=== PATIENT | male | born 1970 | race Two or more races ===

== ENCOUNTER 2016-06-18 09:52 | Day surgery (SDC) | payer OTHER ==
[2016-06-12 14:00] VITALS: BMI 38.2
[~2016-06-18 09:52] MED LIST: DEXAMETHASONE SOD PHOSPHATE 10 MG/ML 1 ML VIAL IV ONE; HEPARIN SODIUM,PORCINE 5,000 UNIT/ML 1 ML VIAL SQ ONE; LACTATED RINGERS 1,000 ML IV SCH; MIDAZOLAM 2 MG/2 ML VIAL IV PRN; ONDANSETRON 4 MG/2 ML VIAL IVP ONE; SCOPOLAMINE 1.5MG/72HR PATCH TRANSDERM ONE; ceFAZolin 3 GM in SODIUM CHLORIDE 0.9% 100 ML IVPB ONE
[2016-06-18 10:13] VITALS: RESP 16
[2016-06-18] MEDS ORDERED: LIDOCAINE 1% 20 ML VIAL (10MG/ML) FOR IV START INTRADERMA ONE (10:16)
--- NOTE | 2016-06-18 11:18 | P.GSHP ---
History of Present Illness H&P Date: 06/18/16 Chief Complaint: Incarcerated umbilical hernia 's is a 45-year-old male who presents today for laparoscopic robotic-assisted repair of incarcerated we'll hernia. He is dull pain in his umbilicus. The patient was seen Alysia found have a small incarcerated umbilical hernia. - Constitutional Constitutional: Reports as per HPI Past Medical History Past Medical History: Asthma, GERD/Reflux Additional Past Medical History / Comment(s): OCC REFLUX D/T DIET. HEMORRHOID. DIARRHEA, FEELS TIRED, SLUGGISH. HAS UMB HERNIA, TO HAVE SURG 06/18/16. History of Any Multi-Drug Resistant Organisms: None Reported Past Surgical History: Orthopedic Surgery Additional Past Surgical History / Comment(s): REPAIR LT EYE INJURY TO CORNEA. RT KNEE SCOPE. EXC ABSCESS ON TAILBONE. Past Anesthesia/Blood Transfusion Reactions: Previous Problems w/ Anesthesia Additional Past Anesthesia/Blood Transfusion Reaction / Comment(s): WHEN AWAKENING GETS CONFUSED, PHYSICAL. Smoking Status: Current every day smoker Past Alcohol Use History: Rare Additional Past Alcohol Use History / Comment(s): SMOKED SINCE 1993, 1 PPD OR MORE. Past Drug Use History: None Reported - Past Family History Mother Family Medical History: No Reported History Medications and Allergies Home Medications Medication Instructions Recorded Confirmed Type Albuterol Inhaler [Ventolin Hfa 1 - 2 puff INHALATION Q6HR PRN 06/12/16 History Inhaler] Ibuprofen [Motrin] 800 mg PO Q8HR PRN 06/12/16 06/17/16 History Allergies Allergy/AdvReac Type Severity Reaction Status Date / Time No Known Allergies Allergy Verified 06/18/16 10:09 Surgical - Exam Vital Signs Temp Pulse Resp BP Pulse Ox 97.5 F L 81 16 132/82 97 06/18/16 10:11 06/18/16 10:11 06/18/16 10:11 06/18/16 10:11 06/18/16 10:11 - General well developed, no distress - Eyes PERRL - ENT normal pinna - Neck no masses - Respiratory normal expansion - Cardiovascular Rhythm: regular - Abdomen Abdomen: soft, non tender Assessment and Plan Plan: Incarcerated we'll hernia. We'll perform laparoscopic robotic-assisted repair.
[2016-06-18] MEDS ORDERED: SUCCINYLCHOLINE CHLORIDE VIAL 200 MG/10 ML VIAL IV ONE (11:33)
[2016-06-18] MEDS ORDERED: PROPOFOL 10 MG/ML 20 ML VIAL IV ONE (11:33)
[2016-06-18] MEDS ORDERED: LIDOCAINE 1% INJ 10MG/ML (20 ML MDV) ONE (11:33)
[2016-06-18] MEDS ORDERED: NEOSTIGMINE 1 MG/ML 10 ML VIAL ONE (11:33)
[2016-06-18] MEDS ORDERED: fentaNYL (PF) 50 MCG/ML 2 ML AMP ONE (11:33)
[2016-06-18] MEDS ORDERED: ROCURONIUM BROMIDE 10 MG/ML 10 ML VIAL IV ONE (11:33)
[2016-06-18] MEDS ORDERED: MIDAZOLAM 2 MG/2 ML VIAL ONE (11:33)
[2016-06-18] MEDS ORDERED: GLYCOPYRROLATE 0.2 MG/ML 2 ML VIAL ONE (11:33)
[2016-06-18] MEDS ORDERED: KETOROLAC 30 MG/ML 1 ML VIAL ONE (11:33)
[2016-06-18] MEDS ORDERED: BUPIVACAIN-EPI 0.25%-1:200,000 30 ML VIAL SQ ONE ×2 (11:57)
[2016-06-18] MEDS ORDERED: LACTATED RINGERS 1,000 ML IV ONE (12:24)
--- NOTE | 2016-06-18 12:26 | P.OP ---
Date of Procedure: 06/18/16 Preoperative Diagnosis: Incarcerated umbilical hernia Postoperative Diagnosis: Incarcerated umbilical hernia Procedure(s) Performed: Laparoscopic robotic-assisted repair of incarcerated umbilical hernia Anesthesia: SLICK Surgeon: Rod Carcamo Estimated Blood Loss (ml): 5 Pathology: none sent Condition: stable Disposition: PACU Description of Procedure: Patient's placed on the operating table in the supine position. He received general anesthesia. His abdomen was prepped and draped usual sterile fashion. The skin incision sites were anesthetized 1% local Xylocaine. Using a 5 mm blade was trocar under direct visitation the perineal cavity is entered in the left upper quadrant. The abdomen was insufflated and then after adequate insufflation the laparoscope was placed back the pleural cavity. Next a 8 mm robotic trochars placed in the left lower quadrant and then a 12 mm trochars placed in left lateral position and the original 5 mm trocar was exchanged for an 8 mm robotic trocar. Patient's placed in the left side up position. And then docked the robot. Incarcerated umbilical hernia was visualized. The hernia contained P Fat. This was dissected free from the fascial defect. The fascial defect was then closed using OV lock suture. Then a piece of ventral light ST mesh was placed over top apparent secured with 2 OV lock suture. The patient was undocked from the robot. The needles were retrieved. The 12 mm trocar site was closed with 0 Ethibond suture using a Sandeep Lyman suture passer and then the skin was closed interrupted 3-0 Monocryl suture. Dermabond was applied. Patient top she will well and was sent to recovery in stable condition.
[2016-06-18 12:56] VITALS: TEMP 97
[2016-06-18] MEDS: HYDROmorphone 1 MG/ML 1 ML SYRINGE IVP PRN ×4 (12:58→13:26)
[2016-06-18] MEDS ORDERED: HYDROcodone/APAP 7.5-325MG 1 EACH TAB PO ONE (14:19)
[2016-06-18 14:42] VITALS: BP 140/41; PULSE 79
== END 2016-06-18 15:30 | disposition home or self-care (01) ==
LOC: OR 09:52
PROVIDERS: ATTEND Surgery
DX: K42.0 Umbilical hernia with obstruction, without gangrene (principal); J45.909 Unspecified asthma, uncomplicated; K21.9 Gastro-esophageal reflux disease without esophagitis; F17.200 Nicotine dependence, unspecified, uncomplicated; Z79.899 Other long term (current) drug therapy
CPT/HCPCS: 49653; C1781; J2250; J0330; J1644; J1100; J2710; J0690; J2405; J2001; J3010; J1885; J1170; J2704

== ENCOUNTER 2016-06-20 02:12 | Inpatient (IN) | payer OTHER ==
[2016-06-20] MEDS ORDERED: SODIUM CHLORIDE 0.9% 1,000 ML IV STA (02:16)
[2016-06-20] MEDS ORDERED: ACETAMINOPHEN TAB 500 MG TAB PO STA (02:35)
[2016-06-20] MEDS ORDERED: MORPHINE SULFATE 4 MG/ML SYRINGE IVP STA (02:35)
[2016-06-20] MEDS ORDERED: IPRATROPIUM-ALBUTEROL 3 ML NEB INHALATION STA (02:35)
--- NOTE | 2016-06-20 02:35 | ED ---
General Adult HPI - General Stated complaint: SOB Time Seen by Provider: 06/20/16 02:14 Source: patient, RN notes reviewed, old records reviewed Mode of arrival: wheelchair Limitations: no limitations - History of Present Illness Initial comments: This is a 45-year-old male the ER for evaluation of postop symptoms. Chest pain shortness of breath abdominal pain. Patient recently had hernia repair incarcerated doctor was Dr Carcamo. Patient is not been feeling better since surgery. Still having continued pain and diffuse body pain and shortness of breath. Patient does notice fever and chills tonight - Related Data Home Medications Medication Instructions Recorded Confirmed Albuterol Inhaler [Ventolin Hfa 1 - 2 puff INHALATION Q6HR PRN 06/12/16 06/17/16 Inhaler] Ibuprofen [Motrin] 800 mg PO Q8HR PRN 06/12/16 06/17/16 Previous Rx's Medication Instructions Recorded HYDROcodone/APAP 7.5-325MG [[place] 1 each PO Q4H PRN #60 tab 06/18/16 7.5] Allergies Allergy/AdvReac Type Severity Reaction Status Date / Time No Known Allergies Allergy Verified 06/18/16 10:09 Review of Systems ROS Statement: Those systems with pertinent positive or pertinent negative responses have been documented in the HPI. ROS Other: All systems not noted in ROS Statement are negative. Past Medical History Past Medical History: Asthma, GERD/Reflux Additional Past Medical History / Comment(s): OCC REFLUX D/T DIET. HEMORRHOID. DIARRHEA, FEELS TIRED, SLUGGISH. HAS UMB HERNIA, TO HAVE SURG 06/18/16. History of Any Multi-Drug Resistant Organisms: None Reported Past Surgical History: Orthopedic Surgery Additional Past Surgical History / Comment(s): REPAIR LT EYE INJURY TO CORNEA. RT KNEE SCOPE. EXC ABSCESS ON TAILBONE. Past Anesthesia/Blood Transfusion Reactions: Previous Problems w/ Anesthesia Additional Past Anesthesia/Blood Transfusion Reaction / Comment(s): WHEN AWAKENING GETS CONFUSED, PHYSICAL. Past Psychological History: No Psychological Hx Reported Smoking Status: Current every day smoker Past Alcohol Use History: Rare Additional Past Alcohol Use History / Comment(s): SMOKED SINCE 1993, 1 PPD OR MORE. Past Drug Use History: None Reported - Past Family History Mother Family Medical History: No Reported History General Exam Limitations: no limitations General appearance: alert, in no apparent distress, anxious Head exam: Present: atraumatic, normocephalic, normal inspection Eye exam: Present: normal appearance, PERRL, EOMI. Absent: scleral icterus, conjunctival injection, periorbital swelling ENT exam: Present: normal exam, mucous membranes moist Neck exam: Present: normal inspection. Absent: tenderness, meningismus, lymphadenopathy Respiratory exam: Present: normal lung sounds bilaterally, respiratory distress , rhonchi, decreased breath sounds, prolonged expiratory. Absent: wheezes, rales, stridor Cardiovascular Exam: Present: regular rate, normal rhythm, normal heart sounds. Absent: systolic murmur, diastolic murmur, rubs, gallop, clicks GI/Abdominal exam: Present: soft, distended, normal bowel sounds. Absent: tenderness, guarding, rebound, rigid Extremities exam: Present: normal inspection, full ROM, normal capillary refill. Absent: tenderness, pedal edema, joint swelling, calf tenderness Back exam: Present: normal inspection Neurological exam: Present: alert, oriented X3, CN II-XII intact Psychiatric exam: Present: normal affect, normal mood Skin exam: Present: warm, dry, intact, normal color. Absent: rash Course Vital Signs 06/20/16 06/20/16 06/20/16 02:14 02:51 03:03 Temperature 100.8 F H Pulse Rate 94 84 84 Respiratory 18 Rate Blood Pressure 155/77 O2 Sat by Pulse 89 L Oximetry 06/20/16 03:53 Temperature Pulse Rate 88 Respiratory 20 Rate Blood Pressure 134/67 O2 Sat by Pulse 92 L Oximetry - Reevaluation(s) Reevaluation #1: 06/20/16 04:57 Patient at this time does remain short of breath even after breathing treatment , oxygen 92% on room air EKG Findings - EKG Comments: EKG Findings:: EKG shows normal sinus rhythm rate of 93, PA 120, QRS 86, QTC 422 Medical Decision Making - Medical Decision Making 45 mallei are for evaluation of cough congestion chest pain shortness of breath , patient is postop palpation be admitted for IV antibiotics secondary to aspiration versus clinical pneumonia, patient will be admitted for IV antibiotic , fever control - Lab Data Result diagrams: 06/20/16 02:40 06/20/16 02:40 Lab Results 06/20/16 06/20/16 06/20/16 Range/Units 02:40 02:40 02:40 WBC 20.0 H (3.8-10.6) k/uL RBC 4.87 (4.30-5.90) m/uL Hgb 14.8 (13.0-17.5) gm/dL Hct 44.2 (39.0-53.0) % MCV 90.7 (80.0-100.0) fL MCH 30.4 (25.0-35.0) pg MCHC 33.5 (31.0-37.0) g/dL RDW 15.1 (11.5-15.5) % Plt Count 417 (150-450) k/uL Neutrophils % 67 % Lymphocytes % 23 % Monocytes % 5 % Eosinophils % 3 % Basophils % 1 % Neutrophils # 13.4 H (1.3-7.7) k/uL Lymphocytes # 4.6 (1.0-4.8) k/uL Monocytes # 1.0 (0-1.0) k/uL Eosinophils # 0.5 (0-0.7) k/uL Basophils # 0.1 (0-0.2) k/uL PT (9.0-12.0) sec INR (<1.1) APTT (22.0-30.0) sec D-Dimer (<0.60) mg/L FEU Sodium 141 (137-145) mmol/L Potassium 4.1 (3.5-5.1) mmol/L Chloride 106 (98-107) mmol/L Carbon Dioxide 24 (22-30) mmol/L Anion Gap 11 mmol/L BUN 15 (9-20) mg/dL Creatinine 0.90 (0.66-1.25) mg/dL Est GFR (MDRD) Af Amer >60 (>60 ml/min/1.73 sqM) Est GFR (MDRD) Non-Af >60 (>60 ml/min/1.73 sqM) Glucose 95 (74-99) mg/dL Plasma Lactic Acid Kaleb (0.7-2.0) mmol/L Calcium 10.0 (8.4-10.2) mg/dL Phosphorus 4.4 (2.5-4.5) mg/dL Magnesium 1.7 (1.6-2.3) mg/dL Total Bilirubin 0.4 (0.2-1.3) mg/dL AST 38 (17-59) U/L ALT 37 (21-72) U/L Alkaline Phosphatase 79 (38-126) U/L Total Creatine Kinase 308 H (55-170) U/L CK-MB (CK-2) 1.5 (0.0-2.4) ng/mL CK-MB (CK-2) Rel Index 0.5 Troponin I <0.012 (0.000-0.034) ng/mL NT-Pro-B Natriuret Pep pg/mL Total Protein 7.0 (6.3-8.2) g/dL Albumin 4.1 (3.5-5.0) g/dL 06/20/16 06/20/16 06/20/16 Range/Units 02:40 02:40 02:40 WBC (3.8-10.6) k/uL RBC (4.30-5.90) m/uL Hgb (13.0-17.5) gm/dL Hct (39.0-53.0) % MCV (80.0-100.0) fL MCH (25.0-35.0) pg MCHC (31.0-37.0) g/dL RDW (11.5-15.5) % Plt Count (150-450) k/uL Neutrophils % % Lymphocytes % % Monocytes % % Eosinophils % % Basophils % % Neutrophils # (1.3-7.7) k/uL Lymphocytes # (1.0-4.8) k/uL Monocytes # (0-1.0) k/uL Eosinophils # (0-0.7) k/uL Basophils # (0-0.2) k/uL PT 10.4 (9.0-12.0) sec INR 1.0 (<1.1) APTT 23.8 (22.0-30.0) sec D-Dimer 0.46 (<0.60) mg/L FEU Sodium (137-145) mmol/L Potassium (3.5-5.1) mmol/L Chloride (98-107) mmol/L Carbon Dioxide (22-30) mmol/L Anion Gap mmol/L BUN (9-20) mg/dL Creatinine (0.66-1.25) mg/dL Est GFR (MDRD) Af Amer (>60 ml/min/1.73 sqM) Est GFR (MDRD) Non-Af (>60 ml/min/1.73 sqM) Glucose (74-99) mg/dL Plasma Lactic Acid Kaleb 1.2 (0.7-2.0) mmol/L Calcium (8.4-10.2) mg/dL Phosphorus (2.5-4.5) mg/dL Magnesium (1.6-2.3) mg/dL Total Bilirubin (0.2-1.3) mg/dL AST (17-59) U/L ALT (21-72) U/L Alkaline Phosphatase (38-126) U/L Total Creatine Kinase (55-170) U/L CK-MB (CK-2) (0.0-2.4) ng/mL CK-MB (CK-2) Rel Index Troponin I (0.000-0.034) ng/mL NT-Pro-B Natriuret Pep 254 pg/mL Total Protein (6.3-8.2) g/dL Albumin (3.5-5.0) g/dL - Radiology Data Radiology results: report reviewed (CT is negative for PE positive for pneumonia ), image reviewed Critical Care Time Critical Care Time: Yes Total Critical Care Time: 31 Disposition Clinical Impression: Postoperative pneumonia, Hypoxia Disposition: ADMITTED IP TO THIS HOSP Condition: Fair Referrals: Jorge Alberto Alvares MD [Primary Care Provider] - 1-2 days
[2016-06-20] MEDS: IBUPROFEN 800 MG TAB PO STA ×2 (02:47→02:56)
[2016-06-20 03:26] LABS: Basophils # (A) 0.1 k/uL (0-0.2); Basophils % (A) 1 %; CH 30.8; CHCM 34.2; Eosinophils # (A) 0.5 k/uL (0-0.7); Eosinophils % (A) 3 %; HCT 44.2 % (39.0-53.0); HGB 14.8 gm/dL (13.0-17.5); Luc # (Auto) 0.35; Luc % (Auto) 2; Lymphocytes # (A) 4.6 k/uL (1.0-4.8); Lymphocytes % (A) 23 %; MCH 30.4 pg (25.0-35.0); MCHC 33.5 g/dL (31.0-37.0); MCV 90.7 fL (80.0-100.0); Mean Platelet Volume 6.6; Monocytes % (A) 5 %; Neutrophils # (A) 13.4 k/uL (1.3-7.7); Neutrophils % (A) 67 %; RBC 4.87 m/uL (4.30-5.90); RDW 15.1 % (11.5-15.5); WBC (Perox) 19.08
[2016-06-20 03:37] LABS: ALT 37 U/L (21-72); AST 38 U/L (17-59); Alkaline Phosphatase 79 U/L (38-126); Anion Gap 11 mmol/L; Blood Urea Nitrogen 15 mg/dL (9-20); Carbon Dioxide 24 mmol/L (22-30); Chloride 106 mmol/L (98-107); Glucose 95 mg/dL (74-99); Magnesium 1.7 mg/dL (1.6-2.3); Non-African American GFR(MDRD) >60 (>60 ml/min/1.73 sqM); Phosphorous 4.4 mg/dL (2.5-4.5); Potassium 4.1 mmol/L (3.5-5.1); Sodium 141 mmol/L (137-145); Total Bilirubin 0.4 mg/dL (0.2-1.3)
[2016-06-20] MEDS ORDERED: RX INFO: IV CONTRAST WAS GIVEN 1 EACH MISC MISCELLANE PRN (03:46)
[2016-06-20 03:57] LABS: Partial Thromboplastin Time 23.8 sec (22.0-30.0); Prothrombin Time 10.4 sec (9.0-12.0)
[2016-06-20 03:59] LABS: Creatine Kinase 308 U/L (55-170)
[2016-06-20 04:11] LABS: Creatine Kinase MB 1.5 ng/mL (0.0-2.4); Troponin I <0.012 ng/mL (0.000-0.034)
--- NOTE | 2016-06-20 04:37 | CT ---
EXAM: CT Angiography Chest With Intravenous Contrast. CLINICAL HISTORY: Reason: Pain TECHNIQUE: Axial computed tomographic angiography images of the chest with intravenous contrast using pulmonary embolism protocol. CTDI is 201.20 mGy and DLP is 730.50 mGy-cm This CT exam was performed using one or more of the following dose reduction techniques: automated exposure control, adjustment of the mA and/or kV according to patient size, and/or use of iterative reconstruction technique. MIP reconstructed images were created and reviewed. COMPARISON: No relevant prior studies available. FINDINGS: Pulmonary arteries: Assessment of the pulmonary arterial vasculature is somewhat limited by contrast bolus, and also by motion artifact through the mid to lower lung dhaliwal. There is no central or large segmental pulmonary embolism seen. Aorta: No acute findings. No thoracic aortic aneurysm. Lungs: Dense consolidation involving much of the right lower lobe, and to a lesser degree right middle lobe where there is volume loss. Multifocal infiltrates are seen within the right greater than left upper lobes. There is bandlike opacity favoring discoid atelectasis in the left lower lobe. One or more small nodules are present laterally in the right middle lobe measuring up to 4-5 mm on series 5 image 92. There is layering fluid/debris in the right mainstem bronchus, filling the entire right lower lobe bronchus and a portion of the right middle lobe bronchus. Pleural space: Trace right pleural effusion. No pneumothorax. Heart: Mild cardiomegaly. No significant pericardial effusion. Bones/joints: Osseous structures intact without acute osseous abnormality nor regional aggressive lytic or blastic lesion. Lymph nodes: Scattered small nodes throughout without adenopathy by CT size criteria. Liver: Limited views through the upper abdomen shows hepatomegaly and hepatic steatosis. IMPRESSION: 1. No definite evidence of pulmonary embolism although assessment in particular at the lung bases is limited. 2. Diffuse right lung consolidation most notably in the right lower lobe, with endobronchial fluid and debris suggesting the presence of aspiration. There are patchy left-sided infiltrates along with bandlike opacity suggesting discoid atelectasis in the left lower lobe. Follow-up can be obtained after treatment to ensure clearing, and which can reevaluate one or more small right middle lobe nodules as well. 3. Additional findings as above. [employer] 06/20/16 04:40 Call Doctor Regarding Bronchial Foreign Body, called Dr. Hunt on 06/20 04:39 (-04:00)
[2016-06-20] MEDS ORDERED: PIPERACILLIN-TAZOBACTAM 3.375 GM in DEXTROSE/WATER 1 50ML.BAG IVPB STA (04:53)
[2016-06-20] MEDS ORDERED: LEVOFLOXACIN 750MG-D5W PMX 750 MG in DEXTROSE/WATER 1 150ML.BAG IVPB STA (04:53)
[2016-06-20] MEDS ORDERED: PNEUMONIA PROTOCOL UTILIZED 1 EACH MISC PO PRN (04:53)
[2016-06-20] MEDS ORDERED: ACETAMINOPHEN TAB 325 MG TAB PO PRN (05:33)
[2016-06-20] MEDS: SODIUM CHLORIDE 0.9% 1,000 ML IV SCH ×2 (06:42→15:17)
[2016-06-20] MEDS: IPRATROPIUM-ALBUTEROL 3 ML NEB INHALATION SCH ×4 (07:27→20:50)
[2016-06-20] MEDS ORDERED: NICOTINE 21MG/24HR PATCH TRANSDERM SCH (09:15)
[2016-06-20 09:23] LABS: Appearance,Urine Clear (Clear); Bilirubin,Urine Negative (Negative); Glucose,Urine (UA) Negative (Negative); Ketones,Urine Negative (Negative); Leukocyte Esterase,Urine Negative (Negative); Nitrite,Urine Negative (Negative); PH, Urine 5.5 (5.0-8.0); Protein,Urine Negative (Negative); Specific Gravity,Urine 1.043 (1.001-1.035); UA Billing (MACRO vs. MICRO) CHEM; Urobilinogen,Urine <2.0 mg/dL (<2.0)
[2016-06-20] MEDS: ENOXAPARIN 40 MG/0.4 ML SYRINGE SQ SCH (10:37)
[2016-06-20] MEDS: MORPHINE SULFATE 4 MG/ML SYRINGE IVP PRN ×3 (10:51→23:41)
[2016-06-20] MEDS ORDERED: POLYETHYLENE GLYCOL 3350 17 GM POWD.PACK PO PRN (13:45)
--- NOTE | 2016-06-20 14:48 | HP ---
DATE OF ADMISSION: Patient is a 45-year-old who came in with complaints of significant shortness of breath. Patient has wheezing bilaterally. Patient is a smoker. Patient has COPD with acute exacerbation. Because of postoperative shortness of breath, there was a concern about pulmonary embolism, because of CT of the chest was obtained which showed infiltrate in the right lower lobe highly suspicious for aspiration with endobronchial debris. Patient was started Zosyn and levofloxacin. I discontinued levofloxacin and patient will be started on treatment with low dose of steroids, Symbicort for COPD. Patient had a low-grade fever of 100.8. Patient was complaining of cough; still unable to bring up much. REVIEW OF SYSTEMS: CONSTITUTIONAL: No fever, no malaise, no fatigue. HEENT: No recent visual problems or hearing problems. Denied any sore throat. CARDIOVASCULAR: As described in HPI. Patient has some pleuritic chest pain on the right side. PULMONARY: As described in HPI. GASTROINTESTINAL: No diarrhea, no nausea, no vomiting, no abdominal pain. Normoactive bowel sounds. NEUROLOGICAL: No headaches, no weakness, no numbness. HEMATOLOGICAL: Denies any bleeding or petechiae. GENITOURINARY: Denies any burning micturition, frequency, or urgency. MUSCULOSKELETAL/RHEUMATOLOGICAL: Denies any joint pain, swelling, or any muscle pain. ENDOCRINE: Denies any polyuria or polydipsia. The rest of the 14 point review of systems is negative. Past medical history is significant for: 1. Possible COPD. 2. Gastroesophageal reflux disease. 3. Patient may even have sleep apnea. Will need a sleep study as an outpatient. 4. Hemorrhoids. 5. Patient had a recent incarcerated hernia repair. Patient smokes 1 pack per day. Denied any alcohol abuse or any drug abuse. FAMILY HISTORY: Mother's history and father's history are unknown to the patient. PHYSICAL EXAMINATION: VITAL SIGNS: Temperature 98.2, pulse of 84, respiratory rate of 18. Blood pressure is 140/79. Saturating at 93% on 2 L of oxygen by nasal cannula. GENERAL: The patient is alert and oriented x3, not in any acute distress. Well developed, well nourished. HEENT: Pupils are round and equally reacting to light. EOMI. No scleral icterus. No conjunctival pallor. Normocephalic, atraumatic. No pharyngeal erythema. No thyromegaly. CARDIOVASCULAR: S1 and S2 present. No murmurs, rubs, or gallops. PULMONARY: Patient has significant expiratory wheezing. No crackles were appreciated. Patient does have a bit of bronchophony and egophony in the right lower posterior lung dhaliwal extending up to the middle of the lung dhaliwal posteriorly. ABDOMEN: Soft, nontender, nondistended, normoactive bowel sounds. No palpable organomegaly. MUSCULOSKELETAL: No joint swelling or deformity. EXTREMITIES: No cyanosis, clubbing, or pedal edema. NEUROLOGICAL: Gross neurological examination did not reveal any focal deficits. SKIN: No rashes. LABORATORY DATA: CBC, CMP are abnormal for elevated WBC count of 20,000. ASSESSMENT AND PLAN: 1. Sepsis secondary to aspiration pneumonia. Patient will be continued on Zosyn. 2. Acute hypercapnic respiratory failure secondary to chronic obstructive pulmonary disease exacerbation. 3. Morbid obesity. Patient may have sleep apnea. 4. Patient recently underwent operation for incarcerated hernia.
[2016-06-20] MEDS: predniSONE 20 MG TAB PO SCH (15:17)
[2016-06-20] MEDS: PIPERACILLIN-TAZOBACTAM 3.375 GM in DEXTROSE/WATER 1 50ML.BAG IVPB SCH ×2 (15:54→23:40)
[2016-06-20] MEDS ORDERED: NA PHOS,M-B/NA PHOS,DI-BA 133 ML ENEMA RECTAL ONE (16:15)
--- NOTE | 2016-06-20 16:19 | P.GSCN ---
History of Present Illness Consult date: 06/20/16 Reason for Consult: Abdominal pain, constipation History of present illness: This a 45-year-old male who presents emergency room last night with complaints of some shortness of breath. The patient is 1 day postop from laparoscopic robotic system repair of the umbilical hernia. The patient states he has had constipation since starting his pain meds. He states he was smoking postoperatively. And then developed shortness of breath. Past Medical History Past Medical History: Asthma, GERD/Reflux Additional Past Medical History / Comment(s): OCC REFLUX D/T DIET. HEMORRHOID. DIARRHEA, FEELS TIRED, SLUGGISH. History of Any Multi-Drug Resistant Organisms: None Reported Past Surgical History: Hernia Repair, Orthopedic Surgery Additional Past Surgical History / Comment(s): REPAIR LT EYE INJURY TO CORNEA. RT KNEE SCOPE. EXC ABSCESS ON TAILBONE. hernia repair 06/18/16 Past Anesthesia/Blood Transfusion Reactions: Previous Problems w/ Anesthesia Additional Past Anesthesia/Blood Transfusion Reaction / Comm: WHEN AWAKENING GETS CONFUSED, PHYSICAL. Past Psychological History: No Psychological Hx Reported Smoking Status: Current every day smoker Past Alcohol Use History: Rare Additional Past Alcohol Use History / Comment(s): SMOKED SINCE 1993, 1 PPD OR MORE. Past Drug Use History: None Reported - Past Family History Mother Family Medical History: No Reported History Medications and Allergies Home Medications Medication Instructions Recorded Confirmed Type Albuterol Inhaler [Ventolin Hfa 1 - 2 puff INHALATION RT-Q6H PRN 06/12/16 History Inhaler] Ibuprofen [Motrin] 800 mg PO Q8HR PRN 06/12/16 06/20/16 History HYDROcodone/APAP 7.5-325MG [[place] 1 tab PO Q4H PRN 06/20/16 06/20/16 History 7.5] Allergies Allergy/AdvReac Type Severity Reaction Status Date / Time No Known Allergies Allergy Verified 06/18/16 10:09 Surgical - Exam Vital Signs Temp Pulse Resp BP Pulse Ox 100.8 F H 94 18 155/77 89 L 06/20/16 02:14 06/20/16 02:14 06/20/16 02:14 06/20/16 02:14 06/20/16 02:14 - General well developed, no distress - Eyes PERRL - ENT normal pinna - Neck no masses - Respiratory normal expansion - Abdomen Mild incisional pain Abdomen: soft Results - Labs 06/20/16 02:40 06/20/16 02:40 Abnormal Lab Results - Last 24 Hours (Table) 06/20/16 Range/Units 08:05 Ur Specific [place] 1.043 H (1.001-1.035) Microbiology - Last 24 Hours (Table) 06/20/16 08:05 Urine Culture - Preliminary Urine,Clean Catch Assessment and Plan Plan: The patient is being treated for pneumonia. He most likely has is constipation due to his Dexter narcotic medication. The patient received a Fleet enema.
[2016-06-20] MEDS ORDERED: NICOTINE 21MG/24HR PATCH TRANSDERM ONE (19:30)
[2016-06-20] MEDS: NICOTINE 21MG/24HR PATCH TRANSDERM SCH (19:49)
[2016-06-20] MEDS: FAMOTIDINE 20 MG TAB PO SCH (19:50)
[2016-06-20] MEDS: SYMBICORT 160-4.5 MCG INHALER INHALATION SCH (20:50)
[2016-06-21] MEDS: SODIUM CHLORIDE 0.9% 1,000 ML IV SCH ×4 (01:14→23:14)
[2016-06-21] MEDS ORDERED: LEVOFLOXACIN 750MG-D5W PMX 750 MG in DEXTROSE/WATER 1 150ML.BAG IVPB SCH (06:00)
[2016-06-21] MEDS: SYMBICORT 160-4.5 MCG INHALER INHALATION SCH ×2 (07:21→19:01)
[2016-06-21] MEDS: IPRATROPIUM-ALBUTEROL 3 ML NEB INHALATION SCH ×4 (07:21→19:01)
--- NOTE | 2016-06-21 07:33 | XR ---
EXAMINATION TYPE: XR chest 2V DATE OF EXAM: 06/21/2016 6:55 AM COMPARISON: Correlation CT 06/20/2016 HISTORY: 45-year-old male pneumonia TECHNIQUE: Frontal and lateral views FINDINGS: The heart remains borderline enlarged. Pulmonary vasculature and aorta within normal limits. Band of atelectasis at the left base. The patchy areas of multifocal groundglass are not as well appreciated on radiographs. There is continued combination of collapse and consolidation of the right lower lobe. All of the endobronchial debris within the bronchus intermedius and bronchus basalis seen on prior C T is also not as well seen on radiographs. No significant pleural effusion. IMPRESSION: 1. Continued combination of collapse and consolidation of the right lower lobe and discoid atelectasi s at the left base. 2. Endobronchial fluid and debris within the bronchus intermedius and right bronchus basalis seen on CT not depicted radiographically. Multifocal bilateral groundglass is also not appreciated radiograph ically.
[2016-06-21] MEDS: ENOXAPARIN 40 MG/0.4 ML SYRINGE SQ SCH (08:13)
[2016-06-21] MEDS: FAMOTIDINE 20 MG TAB PO SCH ×2 (08:13→20:18)
[2016-06-21] MEDS: predniSONE 20 MG TAB PO SCH (08:13)
[2016-06-21] MEDS: PIPERACILLIN-TAZOBACTAM 3.375 GM in DEXTROSE/WATER 1 50ML.BAG IVPB SCH ×3 (08:13→23:13)
[2016-06-21] MEDS: NICOTINE 21MG/24HR PATCH TRANSDERM SCH (08:13)
[2016-06-21] MEDS: IBUPROFEN 600 MG TAB PO PRN ×2 (08:14→23:19)
[2016-06-21 09:01] LABS: CH 30.8; CHCM 33.3; HCT 45.4 % (39.0-53.0); HDW 2.52; HGB 14.7 gm/dL (13.0-17.5); MCH 30.2 pg (25.0-35.0); MCHC 32.4 g/dL (31.0-37.0); MCV 93.2 fL (80.0-100.0); Mean Platelet Volume 6.9; RBC 4.87 m/uL (4.30-5.90); RDW 15.1 % (11.5-15.5); WBC 18.4 k/uL (3.8-10.6)
[2016-06-21 09:30] LABS: Anion Gap 14 mmol/L; Blood Urea Nitrogen 15 mg/dL (9-20); Carbon Dioxide 27 mmol/L (22-30); Chloride 102 mmol/L (98-107); Glucose 84 mg/dL (74-99); Non-African American GFR(MDRD) >60 (>60 ml/min/1.73 sqM); Potassium 4.6 mmol/L (3.5-5.1); Sodium 143 mmol/L (137-145)
[2016-06-21] MEDS ORDERED: BENZONATATE 100 MG CAP PO PRN (17:11)
[2016-06-21] MEDS ORDERED: DOCUSATE 100 MG CAP PO PRN (17:11)
--- NOTE | 2016-06-21 20:53 | PN ---
DATE OF SERVICE: 06/21/2016 INTERVAL HISTORY: Mr. Quintana is a 45-year-old male with a past medical history of COPD, GERD, who is admitted to the hospital with a chief complaint of difficulty in breathing. The patient had a laparoscopic hernia repair a day prior to this hospital admission. The patient did get a CTA of the chest due to concern for PE. It was negative for PE, but is showing a right lung consolidation in the right lower lobe which is suggestive of her aspiration, so he is currently being treated and treated for aspiration pneumonia. Patient was initially started on Zosyn and levofloxacin. His levofloxacin has been discontinued and he is just on Zosyn currently. He is on breathing treatments and a small dose of steroids currently. Today the patient is lying in bed, appears to be in no acute distress. He does not have any active complaints. REVIEW OF SYSTEMS: CONSTITUTIONAL: Denies having any fevers, chills or rigors. RESPIRATORY: His difficulty in breathing is improving. No cough. He is only able to bring up a little sputum. CARDIOVASCULAR: No chest pain. No palpitations. GI: No abdominal pain, nausea, vomiting or diarrhea. Patient's medications have been reviewed. On examination, patient's vital signs: Temperature 97.2, heart rate 78, respiratory rate 18, blood pressure 118/69, saturating at 94% on room air. GENERAL: The patient is an obese male lying in bed, appears to be no acute distress. HEAD: Atraumatic, nontraumatic. EYES: Pupils are round and reactive to light. NECK: No JVD. No thyromegaly. CARDIOVASCULAR: S1, S2 heard. LUNGS: Patient has significant expiratory wheeze bilaterally and has coarse breath sounds in all lung dhaliwal. ABDOMEN: Soft, nontender, nondistended, has small laparoscopic scars. No signs of bleeding or infection around the scars. MUSCULOSKELETAL: No joint swelling or deformity. EXTREMITIES: No cyanosis, no clubbing. No pedal edema. NEUROLOGICAL/RN QUALITY: Alert, awake and oriented x3. No focal deficits. SKIN: No rashes. Patient's labs: White count of 18.4, hemoglobin is 14.7, platelets are 420. Sodium 143, potassium 4.6, chloride 106, bicarb 27, BUN 15, creatinine 0.97. ASSESSMENT AND PLAN: 1. Sepsis secondary to aspiration pneumonia. Continue with Zosyn. 2. Hypercapnic respiratory failure secondary to chronic obstructive pulmonary disease exacerbation due to pneumonia. 3. History of recent laparoscopic repair of incarcerated hernia. 4. Morbid obesity with body mass index of 39.1. PLAN: The plan is to continue patient on Zosyn. Continue with the breathing treatments and steroids. Overall, patient is showing slow progress. Further recommendations to follow, depending on the progress of the patient.
[2016-06-22] MEDS: IPRATROPIUM-ALBUTEROL 3 ML NEB INHALATION SCH ×4 (07:08→19:26)
[2016-06-22] MEDS: SYMBICORT 160-4.5 MCG INHALER INHALATION SCH ×2 (07:08→19:26)
[2016-06-22 07:51] LABS: Basophils # (A) 0.1 k/uL (0-0.2); Basophils % (A) 1 %; CH 30.4; CHCM 33.4; Eosinophils # (A) 0.5 k/uL (0-0.7); Eosinophils % (A) 3 %; HCT 43.8 % (39.0-53.0); HDW 2.56; HGB 14.7 gm/dL (13.0-17.5); Luc # (Auto) 0.54; Luc % (Auto) 3; Lymphocytes # (A) 4.5 k/uL (1.0-4.8); Lymphocytes % (A) 24 %; MCH 30.7 pg (25.0-35.0); MCHC 33.6 g/dL (31.0-37.0); MCV 91.5 fL (80.0-100.0); Mean Platelet Volume 6.6; Monocytes # (A) 1.1 k/uL (0-1.0); Monocytes % (A) 6 %; Neutrophils # (A) 12.2 k/uL (1.3-7.7); Neutrophils % (A) 64 %; RBC 4.79 m/uL (4.30-5.90); RDW 14.8 % (11.5-15.5); WBC 18.9 k/uL (3.8-10.6); WBC (Perox) 18.92
[2016-06-22] MEDS: NICOTINE 21MG/24HR PATCH TRANSDERM SCH (08:04)
[2016-06-22] MEDS: ENOXAPARIN 40 MG/0.4 ML SYRINGE SQ SCH (08:05)
[2016-06-22] MEDS: FAMOTIDINE 20 MG TAB PO SCH ×2 (08:05→20:23)
[2016-06-22] MEDS: PIPERACILLIN-TAZOBACTAM 3.375 GM in DEXTROSE/WATER 1 50ML.BAG IVPB SCH ×3 (08:05→23:27)
[2016-06-22] MEDS: predniSONE 20 MG TAB PO SCH (08:05)
[2016-06-22] MEDS: SODIUM CHLORIDE 0.9% 1,000 ML IV SCH ×2 (19:39→21:41)
[2016-06-22] MEDS ORDERED: MELATONIN 3 MG TABLET PO PRN (20:23)
[2016-06-22] MEDS: IBUPROFEN 600 MG TAB PO PRN (21:40)
[2016-06-23] MEDS: IPRATROPIUM-ALBUTEROL 3 ML NEB INHALATION SCH ×2 (07:03→11:21)
[2016-06-23] MEDS: SYMBICORT 160-4.5 MCG INHALER INHALATION SCH (07:03)
[2016-06-23 07:40] VITALS: BP 122/87; PULSE 65; RESP 16; TEMP 96.8
[2016-06-23 08:23] LABS: Basophils # (A) 0.2 k/uL (0-0.2); Basophils % (A) 1 %; CH 30.3; CHCM 33.2; Eosinophils # (A) 0.6 k/uL (0-0.7); Eosinophils % (A) 4 %; HCT 46.9 % (39.0-53.0); HDW 2.63; HGB 15.4 gm/dL (13.0-17.5); Luc # (Auto) 0.38; Luc % (Auto) 2; Lymphocytes # (A) 5.5 k/uL (1.0-4.8); Lymphocytes % (A) 33 %; MCH 30.1 pg (25.0-35.0); MCHC 32.8 g/dL (31.0-37.0); MCV 91.7 fL (80.0-100.0); Mean Platelet Volume 6.5; Monocytes # (A) 0.7 k/uL (0-1.0); Monocytes % (A) 4 %; Neutrophils # (A) 9.5 k/uL (1.3-7.7); Neutrophils % (A) 56 %; RBC 5.11 m/uL (4.30-5.90); RDW 14.8 % (11.5-15.5); WBC 16.8 k/uL (3.8-10.6); WBC (Perox) 16.95
--- NOTE | 2016-06-23 08:28 | PN ---
DATE OF SERVICE: 06/22/2016. INTERVAL HISTORY: Mr. Quintana is a 45-year-old male with a past medical history of COPD, GERD, admitted with a chief complaint of difficulty in breathing. The patient had a laparoscopic hernia repair, postoperative developed difficulty in breathing. Patient did get a CT angiogram of the chest, which was showing right lung consolidation, but is negative for PE. He is currently being treated for aspiration pneumonia. He is on Zosyn and Levaquin. The patient is also on breathing treatments. The patient states his shortness of breath has improved significantly from yesterday to today and he has been walking in the hallways without having any difficulty in breathing. REVIEW OF SYSTEMS: CONSTITUTIONAL: Denies having any fevers, chills, or rigors. RESPIRATORY: Difficulty in breathing is improving. Patient has cough and he is able to bring per yellow sputum. CARDIOVASCULAR: No chest pain. No palpitations. GI: No abdominal pain, nausea, vomiting, or diarrhea. Patient's medications have been reviewed. On examination, patient's vital signs temperature 98, heart rate 72, respirations 16, blood pressure 114/71. Saturating at 94% on room air. GENERAL EXAMINATION: Patient appears to be no acute distress. He just walked in the [place] without difficulty in breathing. HEAD: Atraumatic, normocephalic. EYES: Pupils are round and reactive to light. NECK: No jugular venous distention or thyromegaly. CARDIOVASCULAR: S1, S2. LUNGS: He has clear breath sounds in all lung dhaliwal. A few coarse breath sounds on the right lower lung base. ABDOMEN: Soft, nontender, laparoscopic scars in place. No signs of bleeding or infection. MUSCULOSKELETAL: No joint swelling or deformity. EXTREMITIES: No cyanosis. No clubbing. No pedal edema. REPRODUCTIVE SURGEON: Alert and oriented x3. No focal neurological deficits. Patient's labs: White count of 18.9, hemoglobin is 14.7, platelets of 435, sodium 143, potassium 4.6, chloride 106, bicarb 27, BUN 15, creatinine 0.97 from yesterday. ASSESSMENT AND PLAN: 1. Sepsis secondary to aspiration pneumonia continue with Zosyn and his Levaquin has been discontinued. 2. Hypercapnic respiratory failure secondary to chronic obstructive pulmonary disease exacerbation due to pneumonia. 3. History of recent laparoscopic repair of incarcerated hernia. 4. Morbid obesity with body mass index of 39. PLAN: The plan is to continue the patient on Zosyn and continue breathing treatments for now. Continue with a small dose of steroid for now and anticipate discharge in the next 24 hours. MTDD
[2016-06-23] MEDS: predniSONE 20 MG TAB PO SCH (08:43)
[2016-06-23] MEDS: NICOTINE 21MG/24HR PATCH TRANSDERM SCH (08:44)
[2016-06-23] MEDS: ENOXAPARIN 40 MG/0.4 ML SYRINGE SQ SCH (08:44)
[2016-06-23] MEDS: FAMOTIDINE 20 MG TAB PO SCH (08:44)
[2016-06-23] MEDS: PIPERACILLIN-TAZOBACTAM 3.375 GM in DEXTROSE/WATER 1 50ML.BAG IVPB SCH (09:15)
[2016-06-23 11:01] LABS: Manual Review Performed
--- NOTE | 2016-06-24 11:56 | DS ---
DATE OF ADMISSION: 06/20/2016 DATE OF DISCHARGE: 06/23/2016 HOSPITAL COURSE: Mr. Quintana is a 45-year-old male with a past medical history of COPD, admitted to the hospital with a chief complaint of breathing. The patient had laparoscopic hernia repair and postop the patient developed difficulty in breathing. The patient did get a CT Angio of the chest as there was a suspicion for PE; but the CT Angio was negative for PE but it showed that the patient had right lung consolidation, because of aspiration. So the patient was started on Zosyn and Levaquin and eventually patient did improve after getting breathing treatments and IV antibiotics. Patient showed significant improvement in his symptoms. He had been walking in the hallways and difficulty in breathing has improved and so he is being discharged home in a stable condition today. Patient's discharge diagnoses: 1. Sepsis secondary to aspiration pneumonia. 2. Hypercapnic respiratory secondary to chronic obstructive pulmonary disease exacerbation due to aspiration pneumonia. 3. History of recent laparoscopic repair of incarcerated hernia. 4. Morbid obesity with body mass index of 39. The patient's discharge medications: 1. Ibuprofen 800 mg p.o. q.8 hours p.r.n. for pain. 2. [place] 7.5/325 one tablet q.4 hours p.r.n. for pain. 3. Albuterol inhalations 1 to 2 puffs q.6 hours p.r.n. for shortness of breath. 4. Augmentin 875/125 one tablet q.12 hours for 5 days. 5. Tessalon Perles 100 mg p.o. 3 times a day. 6. Symbicort 160/4.5 two puffs b.i.d. 7. Pepcid 20 mg p.o. b.i.d. 8. Nicotine patch 21 mg for him 24 hours, 30 patches. 9. Prednisone 10 mg to be taken as directed. 10. MiraLax 17 gm p.o. daily p.r.n. for constipation. The patient is being discharged home in a stable condition. He is advised to follow with his primary care physician, Dr. Jorge Alberto Alvares in 3 days and also advised to get CBC within 3 days of discharge. Patient was given discharge instructions and discharged home in a stable condition today.
== END 2016-06-23 11:53 | disposition home or self-care (01) | DRG 871 ==
LOC: EC 02:12 → 4MS4W 04:56
PROVIDERS: ADMIT Hospitalist; ATTEND Hospitalist
DX: A41.9 Sepsis, unspecified organism (principal); J69.0 Pneumonitis due to inhalation of food and vomit; J96.02 Acute respiratory failure with hypercapnia; J95.89 Other postprocedural complications and disorders of respiratory system, not elsewhere classified; J44.1 Chronic obstructive pulmonary disease with (acute) exacerbation; E66.01 Morbid (severe) obesity due to excess calories; Z68.39 Body mass index [BMI] 39.0-39.9, adult; K21.9 Gastro-esophageal reflux disease without esophagitis; F17.200 Nicotine dependence, unspecified, uncomplicated; J45.909 Unspecified asthma, uncomplicated; K59.03 Drug induced constipation; T40.2X5A Adverse effect of other opioids, initial encounter; Y92.009 Unspecified place in unspecified non-institutional (private) residence as the place of occurrence of the external cause
CPT/HCPCS: 36415; 71020; 71275; 80048; 80053; 81003; 82550; 82553; 83605; 83735; 83880; 84100; 84484; 85025; 85027; 85379; 85610; 85730; 87040; 87070; 87086; 87205; 93005; 94640; 96361; 96365; 96368; 96375; 99291

== ENCOUNTER 2020-08-03 08:26 | Day surgery (SDC) | payer MEDICARE, OTHER ==
--- NOTE | 2020-08-02 22:38 | HP ---
HISTORY AND PHYSICAL CHIEF COMPLAINT: Fluid in the left ear. HISTORY OF PRESENT ILLNESS: The patient is a 49-year-old male who was recently seen in my office complaining of having a plugged sensation in his left ear. The patient states that he has a history of having seasonal allergies. At the time that he was seen in my office, clinical examination of the left ear revealed evidence of fluid in the left middle ear space, so- called glue ear. The patient was placed on a course of Decadron Dose-Doc and was re- evaluated in approximately 2 weeks. At that time the patient stated that there had been little improvement in the ear and it was decided to place him on a second course of Decadron Dose-Doc and re-evaluate him in another 2 weeks. On his final visit, clinical examination revealed that there was no change and no improvement with respect to the fluid in the left ear. That is to say, clinical examination of the left ear revealed that he had chronic left serous otitis media, so-called glue ear. It was recommended that he undergo a left myringotomy with insertion of ventilation tube under IV sedation. PAST MEDICAL HISTORY: Reveals he has NO KNOWN ALLERGIES TO MEDICATIONS. MEDICATIONS: His current medications include losartan. He is on an inhaler for COPD/emphysema. REVIEW OF SYSTEMS: CARDIOVASCULAR: Positive for hypertension. RESPIRATORY SYSTEM: Positive for COPD/emphysema. The remainder of the review of systems is essentially unremarkable. Previous surgeries include hernia surgery and left eye surgery. PHYSICAL EXAMINATION: This patient is a 49-year-old male who was alert and cooperative. HEENT EXAMINATION: Patient is normocephalic. Right tympanic membrane is normal. Right middle ear space is free of any fluid or infection. Examination of the left ear reveals that the left middle ear space has fluid present in the left middle ear space. Pupils are equal, round and reactive to light and accommodation. Extraocular movements are within normal limits. Intranasal examination reveals moderate to severe septal deviation with compensatory hypertrophy of the inferior turbinates and a moderate amount of mucus on the mucous membranes and draining down the posterior pharynx. Cranial nerves 2 through 12 and the remainder of the head and neck exam all within normal limits. CHEST/CARDIOVASCULAR: Both lung dhaliwal are clear to percussion and auscultation. The patient is in regular sinus rhythm. S1 and S2 are present without evidence of any murmurs, S3s or S4s. Peripheral pulses are bilaterally symmetrical. ABDOMEN: There is no evidence of any masses, megaly or tenderness. The abdomen is soft. Skin is unremarkable. MUSCULOSKELETAL/NEUROLOGICAL: Within normal limits. Rectal examination is deferred at this time because the patient has this done on a regular basis at his family physician's office. The remainder of the physical exam is unremarkable. IMPRESSION: Chronic left serous otitis media. PLAN: The patient is scheduled to undergo a left myringotomy with insertion of ventilation tube under IV sedation in a.m. ATTENTION RNS IN THE PRE-SURGICAL AREA: I have not ordered any pre-surgical prophylactic antibiotics for this patient. If the pharmacy department sends any pre- surgical prophylactic antibiotics to the pre-surgical area for this patient, please return that medication to the pharmacy department and make sure that the patient's account is credited appropriately. I have discussed the risks, benefits and alternative therapies for the above-mentioned procedure and for both sedation/analgesia as well as necessary blood product administration, if indicated, as they pertain to this patient. The patient has indicated his or her understanding and acceptance of the risks and procedures discussed. MMODL / IJN: [id number] /
[~2020-08-03 08:26] MED LIST changes: -DEXAMETHASONE SOD PHOSPHATE 10 MG/ML 1 ML VIAL IV ONE; -HEPARIN SODIUM,PORCINE 5,000 UNIT/ML 1 ML VIAL SQ ONE; -MIDAZOLAM 2 MG/2 ML VIAL IV PRN; -ONDANSETRON 4 MG/2 ML VIAL IVP ONE; +Pre Op ABX Message 1 EACH MISC MISCELLANE ONE; -SCOPOLAMINE 1.5MG/72HR PATCH TRANSDERM ONE; -ceFAZolin 3 GM in SODIUM CHLORIDE 0.9% 100 ML IVPB ONE
[2020-08-03 08:49] VITALS: RESP 16; TEMP 97
[2020-08-03] MEDS ORDERED: ONDANSETRON 4 MG/2 ML VIAL ONE (08:57)
[2020-08-03] MEDS ORDERED: DEXAMETHASONE SOD PHOSPHATE 10 MG/ML 1 ML VIAL IV ONE (09:04)
[2020-08-03] MEDS ORDERED: fentaNYL (PF) 50 MCG/ML 2 ML AMP ONE (09:38)
[2020-08-03] MEDS ORDERED: PROPOFOL 10 MG/ML 20 ML VIAL IV ONE (09:38)
[2020-08-03] MEDS ORDERED: MIDAZOLAM 2 MG/2 ML VIAL ONE (09:38)
[2020-08-03] MEDS ORDERED: OFLOXACIN 0.3% OTIC DROPS 5 ML BTL LEFT EAR ONE (10:00)
[2020-08-03 11:10] VITALS: BP 120/65; PULSE 80
--- NOTE | 2020-08-05 00:15 | OP ---
OPERATIVE REPORT DATE OF SURGERY: 08/03/2020. PREOPERATIVE DIAGNOSIS: Chronic left serous otitis media. POSTOPERATIVE DIAGNOSIS: Chronic left serous otitis media. ANESTHESIA: General. OPERATIVE PROCEDURE: Left myringotomy with insertion of an active and an Activent tube. OPERATING SURGEON: Dr. Day. COMPLICATIONS: None. OPERATIVE PROCEDURE: Patient was placed on the operative table, patient was placed on the operating table in supine position. After uneventful induction satisfactory general anesthesia was obtained. Next, the patient's left ear was draped in usual customary fashion. Next, using the [employer] operating microscope and a #3 aural speculum, the left external auditory canal was cleansed of all wax and debris. Next, using the myringotomy knife, an incision was made in the anterior inferior quadrant of the left tympanic membrane and the left middle ear space was suctioned free of all fluid. Following this, a Rosaura bobbin artery and 3B was inserted through the previously made myringotomy incision without difficulty. At this point, the procedure was terminated. There were no intraoperative complications. The patient tolerated the procedure well and was returned to recovery room in satisfactory condition indication. MMODL / IJN: [id number] /
== END 2020-08-03 11:23 | disposition home or self-care (01) ==
LOC: OR 08:26
PROVIDERS: ATTEND Otolaryngology
DX: H65.22 Chronic serous otitis media, left ear (principal); I10 Essential (primary) hypertension; J44.9 Chronic obstructive pulmonary disease, unspecified; F17.200 Nicotine dependence, unspecified, uncomplicated; Z98.890 Other specified postprocedural states; Z97.2 Presence of dental prosthetic device (complete) (partial); Z79.51 Long term (current) use of inhaled steroids; Z79.899 Other long term (current) drug therapy
CPT/HCPCS: 69436; J2250; J1100; J2405; J3010; J2704